=== PATIENT | male | born 1945 | race Caucasian/White ===

== ENCOUNTER 2016-07-13 07:23 | Day surgery (SDC) | payer MEDICARE ==
--- NOTE | ~2016-07-13 | EGD ---
EGD REPORT [facility] [address] [address] NAME: ARUN ANAND : [birth year] [place]US [place] [facility] [place] [id number] AGE: 71 ADM/REG DATE : 07/13/16 MR#: [id number] REPORT SERV DATE: 07/13/16 DICTATED BY: BAKARI NUNES DATE: 07/13/16 REPORT STATUS : Draft [facility]ANS[facility]IB[facility] BY: [facility] DATE: 07/13/16 Endoscopy Center Patient Name: Arun Anand Date of : 1945 Attending MD: BAKARI NUNES MD Procedure Date No Time: 07/13/2016 Procedure: Colonoscopy Indications: High risk colon cancer surveillance: Personal history of colonic polyps Referring MD: LILY VASQUEZ MD Medicines: as per anesthesia Complications: No immediate complications. Procedure: Pre-Anesthesia Assessment: - ASA Grade Assessment: III - A patient with severe systemic disease. After I obtained informed consent, the scope was passed under direct vision. Throughout the procedure, the patient's blood pressure, pulse, and oxygen saturations were monitored continuously. The PCF [id number] was introduced through the anus and advanced to the cecum, identified by appendiceal orifice and ileocecal valve. The colonoscopy was performed without difficulty. The patient tolerated the procedure. The quality of the bowel preparation was fair. Findings: The perianal and digital rectal examinations were normal. Two sessile polyps were found in the recto-sigmoid colon. The polyps were 3 to 4 mm in size. These polyps were removed with a cold biopsy forceps. Resection and retrieval were complete. A sessile polyp was found in the rectum. The polyp was 4 mm in size. The polyp was removed with a cold biopsy forceps. Resection and retrieval were complete. Internal hemorrhoids were found during endoscopy and were mild. Impression: - Two 3 to 4 mm polyps at the recto-sigmoid colon. Resected and retrieved. - One 4 mm polyp in the rectum. Resected and retrieved. - Internal hemorrhoids. Recommendation: - Await pathology results. - Repeat colonoscopy for surveillance based on pathology results. Procedure Code(s): --- Professional --- EGD REPORT [facility] [address] [id number] NAME: ARUN ANAND : [birth year] [place] [facility] [place] [id number] AGE: 71 ADM/REG DATE : 07/13/16 MR#: [id number] REPORT SERV DATE: 07/13/16 DICTATED BY: BAKARI NUNES DATE: 07/13/16 REPORT STATUS : Draft TRANSCRIBED BY: [employer] DATE: 07/13/16 [id number], Colonoscopy, flexible, proximal to splenic flexure; with biopsy, single or multiple Diagnosis Code(s): --- Professional --- K62.1, Rectal polyp D12.7, Benign neoplasm of rectosigmoid junction K64.8, Other hemorrhoids Z86.010, Personal history of colonic polyps CPT copyright 2013 [employer]. All rights reserved. The codes documented in this report are preliminary and upon retail salesperson review may be revised to meet current compliance requirements. BAKARI NUNES MD 07/13/2016 9:49 AM This report has been signed electronically. Number of Addenda: 0 Note Initiated On: 07/13/2016 9:15 AM Scope Withdrawal Time 0 hours 11 minutes 49 seconds [address] [id number]
[~2016-07-13 07:23] MED LIST: AVINZA60 PO; CLEOCIN300 MG PO; COZ50 PO; ENDOCET1 TA3 PO; ENDOCET1 TAB PO; FISH-EPA1000 MG PO; FLONASE NAS; GLUCOPHAGE1000 MG PO; L40 PO; L80 PO; LEVAQUIN750 MG PO; MEVACOR40 MG PO; MSCONT60 PO; NOVLOGPUMP SC; OMEGA 3550 MG PO; OXYCONTIN60 MG PO; SOMATAB PO; VICTOZA18 MG/3 ML SC; VITAMIN D1000 UNI1 PO; VITAMIN D31000 UNIT PO; ZOFRAN8 PO; [UNRECOGNIZED DRUG - OTHER] PO; [UNRECOGNIZED DRUG - REMARK]
== END 2016-07-13 23:59 | disposition home or self-care (01) ==
LOC: DMU 07:23
PROVIDERS: Internal Medicine Gastroenterology
PROC: 0DBN8ZZ Excision of Sigmoid Colon, Via Natural or Artificial Opening Endoscopic (ICD-10-PCS; 2016-07-13)
PROC: 0DBP8ZZ Excision of Rectum, Via Natural or Artificial Opening Endoscopic (ICD-10-PCS; principal; 2016-07-13 09:00)
DX: Z12.11 Encounter for screening for malignant neoplasm of colon (principal); K62.1 Rectal polyp; K63.5 Polyp of colon; K64.8 Other hemorrhoids; I10 Essential (primary) hypertension; E11.9 Type 2 diabetes mellitus without complications; J44.9 Chronic obstructive pulmonary disease, unspecified; E66.9 Obesity, unspecified; M19.90 Unspecified osteoarthritis, unspecified site; E78.00 Pure hypercholesterolemia, unspecified; Z86.010 Personal history of colon polyps; Z88.0 Allergy status to penicillin; Z88.8 Allergy status to other drugs, medicaments and biological substances; Z79.4 Long term (current) use of insulin; Z79.899 Other long term (current) drug therapy; Z87.891 Personal history of nicotine dependence; Z90.49 Acquired absence of other specified parts of digestive tract; Z98.890 Other specified postprocedural states
CPT/HCPCS: 82962; 88305